=== PATIENT | female | born 1955 | race Caucasian/White ===

== ENCOUNTER 2025-04-01 10:13 | Emergency (ER) | payer MEDICARE ==
[~2025-04-01] VITALS: Ht 165.1 cm; Wt 56.7 kg
[2025-04-01 10:15] VITALS: BP 156/98
[2025-04-01] MEDS ORDERED: LEVO75TA7 PO (10:23)
[2025-04-01] MEDS ORDERED: MAGNESIUM SULFATE/D5W 200 ML ONE (10:30)
[2025-04-01] MEDS: MAGNESIUM SULFATE 2 GM in IV DEXTROSE 5% 100 ML IV ONE (10:36)
[2025-04-01 10:48] LABS: PLATELET COUNT (AUTO) 250 K/uL (179-408); RED BLOOD CELL COUNT(AUTO) 4.23 MIL/uL (3.63-4.92); RED CELL DISTRIBUTION WIDTH 13.0 % (12.3-17.7); WHITE BLOOD COUNT (AUTO) 5.7 K/uL (3.8-11.8)
[2025-04-01 10:58] LABS: CREATININE 0.6 mg/dL (0.6-1.3); SODIUM SERUM 139.0 mmol/L (136-145); UREA NITROGEN, BLOOD 8.0 mg/dL (7-18)
[2025-04-01 11:03] LABS: ASPARTATE AMINOTRANSFERASE 13.0 U/L (15-37); TOTAL PROTEIN, SERUM 7.5 g/dL (6.4-8.2)
[2025-04-01] MEDS ORDERED: ALBUTEROL SULFATE 2.5 MG/3 ML NEBU ONE (11:23)
[2025-04-01] MEDS ORDERED: IPRATROPIUM BROMIDE 0.5 MG/2.5 ML NEBU ONE (11:23)
[2025-04-01 11:30] VITALS: O2SAT 95
[2025-04-01] MEDS: ALBUTEROL SULFATE 2.5 MG/3 ML NEBU NEB ONE (11:30)
[2025-04-01] MEDS: IPRATROPIUM BROMIDE 0.5 MG/2.5 ML NEBU NEB ONE (11:30)
[2025-04-01 11:50] VITALS: O2SAT 99
[2025-04-01] MEDS ORDERED: CEFD300C3 PO (13:03)
[2025-04-01] MEDS ORDERED: PRED50TA PO (13:03)
[2025-04-01] MEDS ORDERED: BUDE10.2 INH (13:03)
[2025-04-01] MEDS ORDERED: ALBU18HF2 INH (13:03)
[2025-04-01] MEDS ORDERED: CEFDINIR 300 MG CAPSULE ONE (13:04)
[2025-04-01] MEDS: CEFDINIR 300 MG CAPSULE PO ONE (13:06)
[2025-04-01 13:19] VITALS: BP 145/88; TEMP 97.5; O2SAT 96
== END 2025-04-01 13:21 | disposition home or self-care (01) ==
LOC: ER 10:13
DX: J44.1 Chronic obstructive pulmonary disease with (acute) exacerbation (principal); F17.200 Nicotine dependence, unspecified, uncomplicated; Z88.5 Allergy status to narcotic agent; Z88.7 Allergy status to serum and vaccine; Z87.39 Personal history of other diseases of the musculoskeletal system and connective tissue; Z60.2 Problems related to living alone; Z91.09 Other allergy status, other than to drugs and biological substances
CPT/HCPCS: 99285; 96365; 71045; 96366; 96375; 80076; 80048; 83880; 85025; 36415; 94640; 93005; J2919; J3475 ×2; A4606; A4663; J3590